=== PATIENT | male | born 1955 | race Native Hawaiian/Other Pacific Islander ===

== ENCOUNTER 2016-11-27 23:12 | Emergency (ER) | payer OTHER ==
[2016-11-27 23:21] VITALS: RESP 18
--- NOTE | 2016-11-28 01:58 | C.PDOC ---
History Of Present Illness 61 y/o male presents to the ED for evaluation of itchy, watery eyes which began yesterday. Patient states he sprayed bug spray throughout the house. Shortly after, all family members began experiencing similar symptoms of itchiness and watering of eyes. Patient and family were seen by their PMD who prescribed eye drops and claritin. Family members were able to find relief, but patient and his daughter continue experiencing symptoms and present to the ED for further evaluation. Patient denies fever, chills. Time Seen by Provider: 11/28/16 00:20 Chief Complaint (Nursing): Abnormal Skin Integrity History Per: Patient History/Exam Limitations: no limitations Onset/Duration Of Symptoms: Hrs Current Symptoms Are (Timing): Still Present Quality Of Symptoms: Itching Additional History Per: Patient Past Medical History Reviewed: Historical Data, Nursing Documentation, Vital Signs Vital Signs: Last Vital Signs Temp 97.7 F 11/28/16 02:07 Pulse 65 11/28/16 02:07 Resp 18 11/28/16 02:07 BP 120/68 11/28/16 02:07 Pulse Ox 96 11/28/16 03:36 - Medical History PMH: Hypercholesterolemia Surgical History: No Surg Hx Family History: States: Unknown Family Hx - Social History Hx Alcohol Use: No Hx Substance Use: No - Immunization History Hx Tetanus Toxoid Vaccination: No Hx Influenza Vaccination: Yes Hx Pneumococcal Vaccination: No Review Of Systems Constitutional: Negative for: Fever, Chills Eyes: Positive for: Other (itchy, watery eyes ) Physical Exam - Physical Exam Appears: Non-toxic, No Acute Distress Skin: Normal Color, Warm, Dry, No Rash Head: Atraumatic Eye(s): bilateral: Normal Inspection Oral Mucosa: Moist Throat: Normal, No Erythema, No Exudate Neck: Supple Chest: Symmetrical Cardiovascular: Rhythm Regular Respiratory: Normal Breath Sounds, No Rales, No Rhonchi, No Wheezing Neurological/Psych: Oriented x3, Normal Speech, Normal Cognition ED Course And Treatment O2 Sat by Pulse Oximetry: 96 (on RA) Pulse Ox Interpretation: Normal Medical Decision Making Medical Decision Making: Patient received Benadryl PO. pt feeling better after benadryl, will d/c claritin, now give benadryl, f;/u pmd. advised to change any bedding/towels, etc that may have been sprayed . f/u pmd Disposition Counseled Patient/Family Regarding: Diagnosis, Need For Followup, Rx Given - Disposition Referrals: Prudence Hendricks MD [Staff Provider] - Disposition: HOME/ ROUTINE Disposition Time: :57 Condition: IMPROVED Additional Instructions: Take benadryl every 6 hours if needed for burning and itching for face; do not drive with this medicine. Stop taking Claritin. Follow up with Dr Hendricks. Return to ER for any worse symptom,s. Prescriptions: DiphenhydrAMINE [Benadryl] 25 mg PO Q6 #30 cap Forms: [employer] (Portuguese), General Discharge Instructions - Clinical Impression Clinical Impression: Exposure to chemical irritant, Skin irritation - PA / POLICE RECORDS CLERK / Resident Statement MD/DO has reviewed & agrees with the documentation as recorded. - Scribe Statement The provider has reviewed the documentation as recorded by the Scribe (Trisha Hendricks) All medical record entries made by the Scribe were at my direction and personally dictated by me. I have reviewed the chart and agree that the record accurately reflects my personal performance of the history, physical exam, medical decision making, and the department course for this patient. I have also personally directed, reviewed, and agree with the discharge instructions and disposition.
[2016-11-28 02:08] VITALS: BP 120/68; PULSE 65; TEMP 97.7
[2016-11-28 03:12] VITALS: O2SAT 96
== END 2016-11-28 02:07 | disposition home or self-care (01) ==
LOC: C.ER 23:12
DX: Z77.098 Contact with and (suspected) exposure to other hazardous, chiefly nonmedicinal, chemicals (principal); R23.8 Other skin changes